=== PATIENT | female | born 2005 | race Caucasian/White ===

== ENCOUNTER 2025-01-13 09:22 | Emergency (ER) | payer BC | END 2025-01-13 10:07 | disposition home or self-care (01) | LOC: BURERS 09:22 | DX: L50.0 Allergic urticaria (principal); T40.425A Adverse effect of tramadol, initial encounter | CPT/HCPCS: 99282 ==

== ENCOUNTER 2025-01-21 20:48 | Emergency (ER) | payer BC ==
[2025-01-21] MEDS ORDERED: Ibuprofen 200 MG TAB ONE (21:17)
== END 2025-01-21 22:26 | disposition home or self-care (01) ==
LOC: BURERS 20:48
DX: S43.401A Unspecified sprain of right shoulder joint, initial encounter (principal); X50.0XXA Overexertion from strenuous movement or load, initial encounter
CPT/HCPCS: 99283